=== PATIENT | male | born 1985 | race Caucasian/White ===

== ENCOUNTER 2021-04-26 09:14 | Emergency (ER) | payer SELFPAY ==
[2021-04-26 09:21] VITALS: BP 145/92; PULSE 77; RESP 16; TEMP 36.8; O2SAT 98
--- NOTE | 2021-04-26 09:58 | ED.URI ---
HPI - URI/Sore Throat General Chief Complaint: Upper Respiratory Infection Stated Complaint: Sinus Pain Source: patient and RN notes reviewed Mode of arrival: ambulatory History of Present Illness HPI Narrative: 36-year-old male presented for complaints of my sinus infection will go away. He denies sick contacts, patient is not vaccinated for Covid. Endorses cough with congestion and blowing nose with green sputum. Denies fever or chills. States that he felt a little better yesterday but states the symptoms have worsened again today. He has taken Radha-D DayQuil and NyQuil with no relief. He denies chest pain, palpitations, shortness of breath, sore throat, headache, or dizziness, f/c. Related Data Home Medications Medication Instructions Recorded Confirmed naproxen sodium 220 mg tablet 660 mg PO DAILY PRN tablet 03/30/19 Allergies Allergy/AdvReac Type Severity Reaction Status Date / Time No Known Allergies Allergy Unverified 03/30/19 09:56 Review of Systems Review of Systems: All systems reviewed & are unremarkable except as noted in HPI and below PMFSH Past Medical History Medical History Degenerative joint disease of knee Rotator cuff (capsule) sprain Surgical History Surgical History H/O wisdom tooth extraction Family History Family History Father Patient's father is in good health Mother Family history of cardiac disorder Social History Social History Smoking status: Never smoker Smokeless tobacco user: chewing tobacco Alcohol intake: current Drinks per week: 6 Substance use: never Gender identity (if verbalized by the patient): Male Agree to blood products: Yes Exam Const: General: no acute distress HENMT: Throat: posterior oropharynx normal Other: erythematous pharynx Neck: Neck: normal visual inspection Chest: Chest palpation & inspection: normal inspection of the chest Resp: Effort & Inspection: normal respiratory effort Auscultation: clear to auscultation bilaterally Cardio: Rate: regular rate Rhythm: regular rhythm GI: GI Palp: Yes Soft to palpation Skin: General skin exam: normal color Neuro: General: patient oriented x3 Extrem: General: normal to inspection Course Course Emergency Course: Discharge home with antibiotics Level of Care: Express Care Visit Vital Signs Vital signs: Vital Signs Temperature 98.3 F 04/26/21 09:21 Pulse Rate 77 04/26/21 09:21 Respiratory Rate 16 04/26/21 09:21 Blood Pressure 145/92 H 04/26/21 09:21 Pulse Oximetry 98 04/26/21 09:21 Temperature 98.3 F 04/26/21 09:21 Pulse Rate 77 04/26/21 09:21 Respiratory Rate 16 04/26/21 09:21 Blood Pressure 145/92 H 04/26/21 09:21 Pulse Oximetry 98 04/26/21 09:21 MDM - URI/Sore Throat Differential Diagnosis Differential diagnosis: Likely upper respiratory infection, sinusitis, viral infection and pharyngitis Discharge Plan Discharge Clinical Impression: Sinusitis Patient Disposition: Home, Self-Care Condition: Stable Instructions: Antibiotic Form, Sinusitis (ED) Additional Instructions: Take medication as directed. Follow-up with your primary care provider in 1 to 2 weeks Prescriptions: New amoxicillin-pot clavulanate [Augmentin] 875-125 mg tablet 1 tablet PO Q12H 7 Days Qty: 14 RF: 0 No Action Fluzone Quad [id number] (PF) 60 mcg (15 mcg x 4)/0.5 mL syringe 0.5 ml IM ONCE Qty: 1 RF: 0 naproxen sodium [Aleve] 220 mg tablet 660 mg PO DAILY PRNRF: 0 Follow-up/Referrals: PHYSICIAN NOT ON STAFF,NONSTAFF [Primary Care Provider] - Time of Disposition: 10:00
== END 2021-04-26 10:11 | disposition home or self-care (01) ==
PROVIDERS: Emergency Provider Nurse Practitioner Family
DX: J32.9 Chronic sinusitis, unspecified (principal); F17.220 Nicotine dependence, chewing tobacco, uncomplicated; M17.10 Unilateral primary osteoarthritis, unspecified knee
CPT/HCPCS: 99213; G0463

== ENCOUNTER 2024-01-14 16:14 | Emergency (ER) | payer SELFPAY ==
[2024-01-14 16:15] VITALS: BP 105/58; PULSE 73; RESP 15; TEMP 36.2; O2SAT 96
--- NOTE | 2024-01-14 16:30 | ED.WOUNDLAC ---
HPI - Wound/Laceration General Chief Complaint: Wound/Laceration Stated Complaint: LACERATION Time Seen by Provider: 01/14/24 16:30 Source: patient Mode of arrival: ambulatory Limitations: no limitations History of Present Illness HPI narrative: Patient lacerated right hand accidentally on metal sheet siding 20 minutes prior to arrival. Denies other injuries. Unknown last tetanus shot. Related Data Home Medications Medication Instructions Recorded Confirmed No Home Medications 01/14/24 01/14/24 Allergies Allergy/AdvReac Type Severity Reaction Status Date / Time No Known Allergies Allergy Verified 01/14/24 16:38 Review of Systems Review of Systems: All systems reviewed & are unremarkable except as noted in HPI and below PMFSH Past Medical History Medical History Degenerative joint disease of knee Rotator cuff (capsule) sprain Surgical History Surgical History H/O wisdom tooth extraction Family History Family History Father Patient's father is in good health Mother Family history of cardiac disorder Social History Social History Smoking status: Never smoker Smokeless tobacco user: chewing tobacco Alcohol intake: current Drinks per week: 6 Substance use: never Living arrangements: with family Gender identity (if verbalized by the patient): Male Agree to blood products: Yes Exam Narrative: General appearance: Well-developed, well-nourished Skin: Normal color . Right hand exam showed 2 cm subcutaneous laceration at the right hand laterally for. Clean, straight Vascular: Normal peripheral pulses, normal capillary refill. Musculoskeletal: Normal range of motion, nontender back Neurologic: Alert and oriented ?3, [employer] is normal as tested, no gross motor deficit Course Vital Signs Vital signs: Vital Signs Temperature 36.2 C L 01/14/24 16:15 Pulse Rate 73 01/14/24 16:15 Respiratory Rate 15 01/14/24 16:15 Blood Pressure 105/58 L 01/14/24 16:15 Pulse Oximetry 96 01/14/24 16:15 Oxygen Delivery Room Air 01/14/24 16:15 Temperature 36.2 C L 01/14/24 16:15 Pulse Rate 73 01/14/24 16:15 Respiratory Rate 15 01/14/24 16:15 Blood Pressure 105/58 L 01/14/24 16:15 Pulse Oximetry 96 01/14/24 16:15 Oxygen Delivery Room Air 01/14/24 16:15 Procedures Laceration Laceration 1: Date: 01/14/24 Time: 16:51 Site: hand ( right hand) Size (cm): 5 Description: linear Depth: simple, single layer Local Anesthetic: lidocaine 1% and with epi Amount of anesthesia used (mL): 4 ====== Skin Level ====== Skin layer closed with: nylon Size (cm): 5-0 Number of sutures: 4 Technique: simple, interrupted ====== Subcutaneous Layer ====== ====== Muscle Layer ====== ====== Tendon Layer ====== Critical Care Time Critical Care Time Critical Care Time: No Discharge Plan Discharge Clinical Impression: Hand laceration Patient Disposition: Home, Self-Care Condition: Improved Instructions: Laceration (ED) Additional Instructions: discharge instruction Her remove sutures in 8 days, Return if symptoms are worsening , call your family physician for appointment, take Tylenol as as needed for aches and pain, continue home medications. Prescriptions: No Action amoxicillin-pot clavulanate [Augmentin] 875-125 mg tablet 1 tablet PO Q12H 7 Days Qty: 14 0RF
[2024-01-14] MEDS: LIDO 1%/EPINEPHRINE 1:100,000 20 ML VIAL 5 ML INFILTRATE (16:43)
[2024-01-14] MEDS: TETANUS,DIPHTHERIA,AC PERTUSSIS ADULT 0.5 ML (ADACEL) IM (16:53)
[2024-01-14 17:07] VITALS: BP 110/70; PULSE 87; RESP 16; O2SAT 97
== END 2024-01-14 17:07 | disposition home or self-care (01) ==
LOC: CHSED 16:58
PROVIDERS: Emergency Provider Emergency Medicine
DX: S61.411A Laceration without foreign body of right hand, initial encounter (principal); Z23 Encounter for immunization; W45.8XXA Other foreign body or object entering through skin, initial encounter
CPT/HCPCS: 12002; 90471; 90715; 99282